=== PATIENT | male | born 1980 | race Caucasian/White ===

== ENCOUNTER 2018-02-13 14:07 | Emergency (ER) | payer SELFPAY ==
[2018-02-13] MEDS ORDERED: KETOROLAC 30 MG/ML INJ ONE ×2 (14:58→14:59)
--- NOTE | 2018-02-13 15:07 | RAD REPORT ---
EXAM DESCRIPTION: RAD - Foot Right 3 View - 02/13/2018 3:00 pm CLINICAL HISTORY: PAIN COMPARISON: No comparisons FINDINGS: Oblique fracture involves the distal shaft of the fifth metatarsal. Mild adjacent soft tis megan swelling is evident. Tiny calcaneal spurs are seen. IMPRESSION: Fifth metatarsal fracture.
--- NOTE | 2018-02-13 15:56 | ER ---
Nurse's Notes [facility] Name: Bin Rudolph Age: 37 yrs Sex: Male : 1980 Arrival Date: 02/13/2018 Time: 14:12 Bed 19 Private MD: Diagnosis: Displaced fracture of fifth metatarsal bone, right foot Presentation: 02/13 14:20 Presenting complaint: Patient states: "I was coming down a ladder and I stepped off the aa5 ladder when I was on the second to last step and rolled my ankle". Pt c/o right ankle pain. Transition of care: patient was not received from another setting of care. Onset of symptoms was February 12, 2018. Risk Assessment: Do you want to hurt yourself or someone else? Patient reports no desire to harm self or others. Initial Sepsis Screen: Does the patient meet any 2 criteria? No. Patient's initial sepsis screen is negative. Does the patient have a suspected source of infection? No. Patient's initial sepsis screen is negative. Care prior to arrival: None. 14:20 Method Of Arrival: Ambulatory aa5 14:20 Acuity: SINDY 4 aa5 Historical: - Allergies: 14:22 No Known Allergies; aa5 - PMHx: 14:22 Hypertension; aa5 - PSHx: 14:22 sinus polyp removed; aa5 - Immunization history:: Adult Immunizations up to date. - Social history:: Smoking status: Patient/guardian denies using tobacco, Patient/guardian denies using alcohol, street drugs, The patient lives with family. - Ebola Screening: : No symptoms or risks identified at this time. - Family history:: not pertinent. Screenin:40 Abuse screen: Denies threats or abuse. Denies injuries from another. Nutritional jl7 screening: No deficits noted. Tuberculosis screening: No symptoms or risk factors identified. Fall Risk Gait- Impaired (20 pts.). Total Alex Fall Scale indicates No Risk (0-24 pts). Assessment: 14:40 General: Appears in no apparent distress. uncomfortable, Behavior is calm, cooperative, jl7 appropriate for age. Pain: Complains of pain in right foot Pain currently is 9 out of 10 on a pain scale. Neuro: Level of Consciousness is awake, alert, obeys commands, Oriented to person, place, time, situation. Cardiovascular: Patient's skin is warm and dry. Respiratory: Airway is patent Respiratory effort is even, unlabored, Respiratory pattern is regular, symmetrical. Derm: Skin is pink, warm \\T\\ dry. Musculoskeletal: Range of motion: intact in all extremities, Swelling present in lateral side of right foot and dorsum of right foot. Vital Signs: 14:21 BP 161 / 79; Pulse 98; Resp 16 S; Temp 97.4(TE); Pulse Ox 96% on R/A; Weight 140.61 kg aa5 (R); Height 6 ft. 3 in. (190.50 cm) (R); Pain 9/10; 15:18 BP 122 / 58; Pulse 95; Resp 18; Pulse Ox 100% on R/A; mh5 14:21 Body Mass Index 38.75 (140.61 kg, 190.50 cm) aa5 ED Course: 14:12 Patient arrived in ED. rg4 14:21 Triage completed. aa5 14:21 Arm band placed on. aa5 14:27 Jacquie Pretty MD is Attending Physician. ma2 14:40 Patient has correct armband on for positive identification. Bed in low position. Call jl7 light in reach. Side rails up X 1. Pulse ox on. NIBP on. 14:49 Radha Eddy, EDUARDO is Primary Nurse. aa5 15:00 X-ray completed. Portable x-ray completed in exam room. Patient tolerated procedure mh1 well. 15:01 Foot Right 3 View XRAY In Process Unspecified. EDMS 15:06 No provider procedures requiring assistance completed. Patient did not have IV access jl7 during this emergency room visit. 15:22 Sam Gil MD is Referral Physician. ma2 15:38 Crutch training done. Ortho shoe applied to right foot. 5 Administered Medications: 15:04 Drug: TORadol 60 mg Route: IM; Site: right gluteus; jl7 15:37 Follow up: Response: No adverse reaction jl7 Outcome: 15:23 Discharge ordered by . ma2 15:50 Discharged to home ambulatory, with crutches. jl7 15:50 Condition: stable 15:50 Discharge instructions given to patient, Instructed on discharge instructions, follow up and referral plans. medication usage, crutch walking, Demonstrated understanding of instructions, follow-up care, medications, crutch walking, Prescriptions given X 1. 15:51 Patient left the ED. jl7 Signatures: Dispatcher [employer] EDMS Mitzy Campos mh1 Radha Eddy RN RN aa5 Paulette Magana4 Marjorie Salas5 Jose Miguel Palacios RN RN jl7 Jacquie Pretty MD MD ma2
--- NOTE | 2018-02-13 15:56 | EDPHYS ---
Physician Documentation [facility] Name: Bin Rudolph Age: 37 yrs Sex: Male : 1980 Arrival Date: 02/13/2018 Time: 14:12 Bed 19 Private MD: ED Physician Jacquie Pretty HPI: 02/13 14:43 This 37 yrs old Male presents to ER via Ambulatory with complaints of Foot ma2 Injury. 14:43 The patient presents with a contusion. The complaints affect the right foot. Context: ma2 The problem was sustained at home. Onset: The symptoms/episode began/occurred suddenly, 1 day(s) ago. Modifying factors: The symptoms are alleviated by the symptoms are aggravated by weight bearing. Associated signs and symptoms: Pertinent positives: Pertinent negatives: calf tenderness, nausea, tingling, vomiting. Severity of symptoms: At their worst the symptoms were moderate, in the emergency department the symptoms are unchanged. The patient has not experienced similar symptoms in the past. Historical: - Allergies: 14:22 No Known Allergies; aa5 - PMHx: 14:22 Hypertension; aa5 - PSHx: 14:22 sinus polyp removed; aa5 - Immunization history:: Adult Immunizations up to date. - Social history:: Smoking status: Patient/guardian denies using tobacco, Patient/guardian denies using alcohol, street drugs, The patient lives with family. - Ebola Screening: : No symptoms or risks identified at this time. - Family history:: not pertinent. ROS: 14:43 MS/extremity: Positive for pain, swelling, Negative for injury or acute deformity, ma2 bite, deformity, ecchymosis, tingling, warmth. 14:43 Constitutional: Negative for fever, chills, and weight loss, Cardiovascular: Negative for chest pain, palpitations, and edema. 14:43 All other systems are negative. Exam: 14:43 Constitutional: This is a well developed, well nourished patient who is awake, alert, ma2 and in no acute distress. Head/Face: Normocephalic, atraumatic. Neck: Trachea midline, no thyromegaly or masses palpated, and no cervical lymphadenopathy. Supple, full range of motion without nuchal rigidity, or vertebral point tenderness. No Meningismus. Chest/axilla: Normal chest wall appearance and motion. Nontender with no deformity. No lesions are appreciated. Cardiovascular: Regular rate and rhythm with a normal S1 and S2. No gallops, murmurs, or rubs. Normal PMI, no JVD. No pulse deficits. Skin: Warm, dry with normal turgor. Normal color with no rashes, no lesions, and no evidence of cellulitis. Neuro: Awake and alert, GCS 15, oriented to person, place, time, and situation. Cranial nerves II-XII grossly intact. Motor strength 5/5 in all extremities. Sensory grossly intact. Cerebellar exam normal. Normal gait. 14:43 Musculoskeletal/extremity: Extremities: noted in the right foot: decreased ROM, pain, tenderness, ROM: Circulation is intact in all extremities. Sensation intact. Compartment Syndrome exam of affected extremity: is normal. no pain. Vital Signs: 14:21 BP 161 / 79; Pulse 98; Resp 16 S; Temp 97.4(TE); Pulse Ox 96% on R/A; Weight 140.61 kg aa5 (R); Height 6 ft. 3 in. (190.50 cm) (R); Pain 9/10; 15:18 BP 122 / 58; Pulse 95; Resp 18; Pulse Ox 100% on R/A; mh5 14:21 Body Mass Index 38.75 (140.61 kg, 190.50 cm) aa5 MDM: 14:27 Patient medically screened. [facility] 14:43 Differential diagnosis: fracture, sprain, arthritis, gout. Data reviewed: vital signs, wv2 nurses notes, EMS record, radiologic studies, plain films. 15:22 Counseling: I had a detailed discussion with the patient and/or guardian regarding: the [facility] historical points, exam findings, and any diagnostic results supporting the discharge/admit diagnosis, the presence of at least one elevated blood pressure reading (>120/80) during this emergency department visit, lab results, radiology results. Response to treatment: the patient's symptoms have mildly improved after treatment. 02/13 14:43 Order name: Foot Right 3 View XRAY [facility] 02/13 15:25 Order name: Short Leg Splint: right sided hard sole shoe ; Complete Time: 15:36 ma2 02/13 15:25 Order name: Crutches; Complete Time: 15:37 wv2 Administered Medications: 15:04 Drug: TORadol 60 mg Route: IM; Site: right gluteus; jl7 15:37 Follow up: Response: No adverse reaction jl7 Disposition: 02/13/18 15:23 Discharged to Home. Impression: Displaced fracture of fifth metatarsal bone, right foot. - Condition is Stable. - Discharge Instructions: Metatarsal Fracture. - Prescriptions for Tylenol- Codeine #3 300-30 mg Oral Tablet - take 2 tablet by ORAL route every 6 hours As needed; 30 tablet. - Medication Reconciliation Form, Thank You Letter, Antibiotic Education, Prescription Opioid Use form. - Follow up: Sam Gil MD; When: Tomorrow; Reason: Continuance of care. - Problem is new. - Symptoms are unchanged. - Notes: do not put weight on your right foot, untill you see your bone doctor. Signatures: Dispatcher [employer] EDRadha Parra, RN RN aa5 Jose Miguel Palacios RN RN jl7 Jacquie Pretty MD MD ma2 Corrections: (The following items were deleted from the chart) 15:51 15:23 02/13/2018 15:23 Discharged to Home. Impression: Displaced fracture of fifth jl7 metatarsal bone, right foot. Condition is Stable. Forms are Medication Reconciliation Form, Thank You Letter, Antibiotic Education, Prescription Opioid Use. Follow up: Sam Gil; When: Tomorrow; Reason: Continuance of care. Problem is new. Symptoms are unchanged. ma2
== END 2018-02-13 15:51 | disposition home or self-care (01) ==
LOC: ER 14:07
DX: S92.351A Displaced fracture of fifth metatarsal bone, right foot, initial encounter for closed fracture (principal); X58.XXXA Exposure to other specified factors, initial encounter; Y93.9 Activity, unspecified; Y92.009 Unspecified place in unspecified non-institutional (private) residence as the place of occurrence of the external cause; I10 Essential (primary) hypertension
CPT/HCPCS: 96372; 99284